=== PATIENT | female | born 1960 | race Caucasian/White ===

== ENCOUNTER → 2016-05-21 | Outpatient (CLI) | payer BC ==
--- NOTE | 2016-05-21 18:10 | MR ---
EXAMINATION TYPE: MR pelvis wo con DATE OF EXAM: 05/21/2016 5:51 PM COMPARISON: X-ray 04/06/2016 HISTORY: Patient had hip surgery in January and is now having coccyx pain. Patient has history of th ree different injuries to coccyx Standard multiplanar, multisequence MRI departmental protocol Multiplanar, multisequence images of the pelvis were acquired. Diffusion weighted imaging was perform ed. FINDINGS: There is artifact from bilateral hip prostheses surgery. This obscures structures within the pelvis. Disc bulging L3-4 and L4-5 with degenerative disc disease seen. Severe degenerative disc disease L5-S 1. Visualized sacrum and coccyx maintain normal marrow signal with no evidence of marrow edema or fractu re. SI joints are symmetric. IMPRESSION: 1. Coccyx has a normal appearance. 2. Postsurgical change involving the hips bilaterally. 3. Multilevel degenerative disc disease with severe changes L5-S1
== END | disposition home or self-care (01) ==
LOC: RADMRIMAIN 17:00
PROVIDERS: ATTEND Orthopaedic Surgery
DX: M53.3 Sacrococcygeal disorders, not elsewhere classified (principal); Z98.890 Other specified postprocedural states
CPT/HCPCS: 72195

== ENCOUNTER → 2022-06-22 | Outpatient (CLI) | payer SELFPAY ==
--- NOTE | 2022-06-23 09:32 | MM ---
Reason for Exam: Screening (asymptomatic). Last mammogram was performed 8 year(s) and 1 month(s) ago. Patient History: Menarche at age 12. Patient has no children. Postmenopausal. Risk Values: Danya 5 year model risk: 1.7%. NCI Lifetime model risk: 7.7%. Prior Study Comparison: 06/25/2009 Bilateral Screening Mammogram, [facility]. 07/09/2010 Bilateral Screening Mammogram, [facility]. 05/24/2014 Bilateral Screening Mammogram, [facility]. Tissue Density: The breast tissue is heterogeneously dense. This may lower the sensitivity of mammography. Findings: Analyzed By CAD. Benign-appearing bilateral axillary lymph nodes are redemonstrated. There are few scattered benign-appearing round calcifications throughout the right breast redemonstrated. There is no suspicious group of microcalcifications or new suspicious mass in either breast. Overall Assessment: Benign, BI-RAD 2 Management: Screening Mammogram of both breasts in 1 year. . Patient should continue monthly self-breast exams. A clinical breast exam by your physician is recommended on an annual basis. This exam should not preclude additional follow-up of suspicious palpable abnormalities. Note on Danya scores and lifetime risk: 1. A Danya score greater than 3% is considered moderate risk. If this is the case, consider specialist referral to assess eligibility for a risk reducing agent. 2. If overall lifetime risk for the development of breast cancer is 20% or higher, the patient may qualify for future screening with alternating mammogram and breast MRI. Electronically signed and approved by: Edy Sanchez M.D.
== END | disposition home or self-care (01) ==
LOC: RADMAMWWP 09:34
PROVIDERS: ATTEND Family Medicine
DX: Z12.31 Encounter for screening mammogram for malignant neoplasm of breast (principal); Z78.0 Asymptomatic menopausal state
CPT/HCPCS: 77063; 77067

== ENCOUNTER → 2023-07-26 | Outpatient (CLI) | payer SELFPAY ==
--- NOTE | 2023-07-26 10:19 | XR ---
EXAMINATION TYPE: XR knee complete LT DATE OF EXAM: 07/26/2023 COMPARISON: None HISTORY: 62-year-old female M25.562, left knee pain TECHNIQUE: 3 views FINDINGS: Mild degenerative spurring medial patellofemoral compartments. There may be a trace joint effusion. E xtensor mechanism appears intact. No acute fracture, subluxation, dislocation seen. IMPRESSION: Mild degenerative spurring medial and patellofemoral compartments. No acute osseous abnormality seen.
== END | disposition home or self-care (01) ==
LOC: RADXRMAIN 09:25
PROVIDERS: ATTEND Family Medicine
DX: M17.12 Unilateral primary osteoarthritis, left knee (principal)

== ENCOUNTER → 2024-09-07 | Outpatient (CLI) | payer OTHER ==
--- NOTE | 2024-09-07 08:40 | MM ---
Reason for Exam: Clinical finding. Last mammogram was performed 2 year(s) and 2 month(s) ago. Indicated Problems: Pain of the left side (Global) for 3 Month(s). Patient History: Menarche at age 12. Patient has no children. Postmenopausal. Patient used Hormonal Contraceptives for 9 years. Risk Values: Danya 5 year model risk: 1.8%. NCI Lifetime model risk: 7.2%. Prior Study Comparison: 03/04/2000 Bilateral Screening Mammogram, [facility]. 07/18/2001 Bilateral Screening Mammogram, [facility]. 08/07/2002 Bilateral Screening Mammogram, [facility]. 09/03/2002 Right Special View Mammogram, [facility]. 05/18/2004 Bilateral Screening Mammogram, [facility]. 06/09/2005 Bilateral Screening Mammogram, [facility]. 06/11/2005 Left Diagnostic Mammogram, [facility]. 07/22/2006 Bilateral Screening Mammogram, [facility]. 07/28/2006 Bilateral Diagnostic Mammogram, [facility]. 05/18/2007 Bilateral Diagnostic Mammogram, [facility]. 05/18/2007 Left Diagnostic Ultrasound, [facility]. 11/20/2007 Left Diagnostic Ultrasound, [facility]. 05/27/2008 Bilateral Diagnostic Mammogram, [facility]. 05/27/2008 Left Diagnostic Ultrasound, [facility]. 06/25/2009 Bilateral Screening Mammogram, [facility]. 07/09/2010 Bilateral Screening Mammogram, [facility]. 05/24/2014 Bilateral Screening Mammogram, [facility]. 06/22/2022 Bilateral MG 3D screening mammo w/cad, [facility]. Tissue Density: The breasts are heterogeneously dense, which may obscure small masses. Findings: Analyzed By CAD. Stable appearing heterogeneous breast tissue. Benign-appearing calcifications. No suspicious grouped calcifications. Stable appearing chronic nodularity upper margin of the right breast. Overall Assessment: Benign, BI-RAD 2 Management: Screening Mammogram of both breasts in 1 year. . Results were given to the patient verbally at the time of exam. Patient should continue monthly self-breast exams. A clinical breast exam by your physician is recommended on an annual basis. This exam should not preclude additional follow-up of suspicious palpable abnormalities. Note on Danya scores and lifetime risk: 1. A Danya score greater than 3% is considered moderate risk. If this is the case, consider specialist referral to assess eligibility for a risk reducing agent. 2. If overall lifetime risk for the development of breast cancer is 20% or higher, the patient may qualify for future screening with alternating mammogram and breast MRI. [facility], , 09/07/2024 8:37 AM. Electronically signed and approved by: Som Ashby M.D. [facility]
== END | disposition home or self-care (01) ==
LOC: RADMAMWWP 08:13
PROVIDERS: ATTEND Family Medicine
DX: R92.333 Mammographic heterogeneous density, bilateral breasts (principal); Z78.0 Asymptomatic menopausal state; Z92.0 Personal history of contraception
CPT/HCPCS: 77062; 77066